=== PATIENT | male | born 1950 | race Caucasian/White ===

== ENCOUNTER 2019-09-13 12:23 | Observation (INO) | payer MEDICARE ==
--- NOTE | 2019-09-13 15:14 | NM ---
VQ SCAN: DATE: 09/13/2019 HISTORY: Dyspnea. TECHNIQUE: A ventilation perfusion scan was performed using 19.1 mCi Xenon-133 by inhalation for the ventilation stud followed by the intravenous administration of 5.9 mCi technetium-99m MAA for the perfusion scan . FINDINGS: Correlation is made with chest radiograph from the same date. There is homogeneous tracer distribution to both lungs on the ventilation perfusion exams without ple ural based, wedge-shaped, segmental or subsegmental, mismatched perfusion defects. There is mild trac er retention in the lungs bilaterally on the washout phase of the ventilation scan. IMPRESSION: Very low probability for pulmonary embolism. POS: [facility]
[2019-09-13 16:00] LABS: Troponin I 0.027 ng/mL (< 0.028)
[2019-09-13 16:27] VITALS: BMI 27.8
[2019-09-13] MEDS ORDERED: Labetalol HCl 100 MG/20 ML VIAL SLOW IVP PRN (16:53)
[2019-09-13] MEDS ORDERED: Ondansetron PF 4 MG/2 ML Vial IVP PRN (16:53)
[2019-09-13] MEDS ORDERED: Nitroglycerin 0.4 MG TAB (25 Tab Bottle) PO PRN (16:53)
[2019-09-13] MEDS ORDERED: Ondansetron ODT 4 MG TAB PO PRN (16:53)
--- NOTE | 2019-09-13 17:31 | HP ---
PRIMARY CARE PROVIDER: [facility] in [place], [place]. CHIEF COMPLAINT: Chest pain and burning in the throat. HISTORY OF PRESENT ILLNESS: This is a 68-year-old male with significant history of coronary artery disease, status post coronary artery bypass grafting x2 vessels approximately 2 years prior to this evaluation. The patient states he awoke around 4:00 a.m. on the date of admission, complaining of burning in his throat, which he states he had similar symptoms when he underwent cardiac evaluation and subsequent heart catheterization and coronary artery bypass grafting 2 years prior to this evaluation. The patient states he sat up in bed for approximately 2 hours until 6:00 a.m., then notified his family of his symptoms. EMS were notified, at which point, the patient was given sublingual nitroglycerin in addition to aspirin and transported to [facility]. The patient underwent general evaluation with negative cardiac biomarkers and no EKG changes consistent with ischemia. The patient states his symptoms of chest pain improved with the topical nitroglycerin, but experienced increasing headache. The patient denied any change to his chronic medication regimen and states he has been compliant. No history of fever, chills, travel history, exposure or family members with similar symptoms. In the emergency room, the patient did receive Lovenox, transdermal nitroglycerin, aspirin 325 mg, and Protonix 40 mg x1 dose. PAST MEDICAL HISTORY: 1. Coronary artery disease, status post coronary artery bypass grafting. 2. Multiple myeloma. 3. Gastroesophageal reflux disease. 4. Horseshoe kidney with chronic kidney disease, stage 3. 5. Hypertension. 6. Dyslipidemia. 7. Ischemic cardiomyopathy with ejection fraction of 35%. PAST SURGICAL HISTORY: 1. Status post left total knee arthroplasty. 2. Status post coronary artery bypass grafting x3 vessels. 3. Status post cardiac catheterization. CURRENT MEDICATIONS: 1. Aspirin 81 mg p.o. daily. 2. Amlodipine 10 mg p.o. daily. 3. Isosorbide dinitrate. 4. Losartan 100 mg p.o. daily. 5. Coreg 25 mg p.o. b.i.d. ALLERGIES: TO MORPHINE. FAMILY HISTORY: Positive for hypertension and coronary artery disease. SOCIAL HISTORY: Resides in [place], [place]. Retired. of the [employer]. No alcohol or illicit drug use. Uses smokeless tobacco. Functional of all activities of daily living. REVIEW OF SYSTEMS: CONSTITUTIONAL: Negative for weight loss or gain, ability to conduct usual activities. SKIN: Negative for rash, itching. EYES: Negative for double vision, pain. ENT/MOUTH: Negative for nose bleeding, neck stiffness, pain, tenderness. CARDIOVASCULAR: Negative for palpitations, dyspnea on exertion, orthopnea. RESPIRATORY: Negative for shortness of breath, wheezing, cough, hemoptysis, fever or night sweats. GASTROINTESTINAL: Negative for poor appetite, abdominal pain, heartburn, nausea, vomiting, constipation, or diarrhea. GENITOURINARY: Negative for urgency, frequency, dysuria, nocturia. MUSCULOSKELETAL: Negative for pain, swelling. NEUROLOGIC/PSYCHIATRIC: Negative for anxiety, depression. ALLERGY/IMMUNOLOGIC: Negative for skin rash, bleeding tendency. Otherwise negative except as stated per HPI. PHYSICAL EXAMINATION: VITAL SIGNS: On admission, blood pressure 170/90, pulse 45, respiratory rate 16, temperature 97.7 degrees Fahrenheit, and O2 saturation 97% on room air. GENERAL APPEARANCE: This is a 68-year-old male, alert and oriented x3, pleasant, responsive, in no acute distress. HEENT: Pupils are equal, round, and reactive to light and accommodation. Extraocular muscles are intact. No scleral icterus. No conjunctival injection. Nares patent. OP is clear. Teeth in fair repair. NECK: Supple. No cervical adenopathy. No thyromegaly. No carotid bruits. No JVD appreciated. Cervical spine with full active and passive range of motion. No meningeal signs noted. CHEST: Lungs are clear to auscultation bilaterally. CARDIOVASCULAR: S1 and S2 without noted murmur, rub, or gallop. ABDOMEN: Rounded, soft, nontender, and nondistended. Bowel sounds are positive in all 4 quadrants. There is no hepatosplenomegaly. No abdominal bruits. No rebound or guarding appreciated. EXTREMITIES: Warm and dry with fair turgor. No clubbing, cyanosis, or asymmetric edema appreciated. Pulses palpable distally at the dorsalis pedis, posterior tibial, and popliteal arteries bilaterally. Capillary refill less than 2 seconds. NEUROLOGIC: Cranial nerves II through XII are grossly intact. No focal or lateralizing signs appreciated. PERTINENT LABORATORY AND X-RAY FINDINGS: Sodium 144, potassium 4.3, chloride 111, CO2 of 21, BUN 19, creatinine 1.57, estimated GFR 44, glucose 119, and calcium 8.7. LFTs within normal limits. BNP 228, previously noted 377 on 02/28/2017. Lipase 29. CBC within normal limits. D-dimer 0.81. Ventilation perfusion study dated 09/13/2019, showed low probability for pulmonary embolus. Portable chest x-ray dated 09/13/2019, showed mild cardiomegaly. EKG dated 09/13/2019, by my interpretation shows sinus bradycardia with heart rates in the 40s. Attenuated R-waves noted in the precordial leads. Normal axis. T-wave flattening in leads V5 and V6. ASSESSMENT AND PLAN: 1. Chest pain. The patient will be observed on the telemetry unit. We will continue serial cardiac biomarkers per protocol. Check 2D transthoracic echocardiogram in the a.m. Proceed with Cardiolite stress testing. Continue aspirin 325 mg daily. Check fasting lipid profile in the a.m. 2. Coronary artery disease, chronic and stable. See #1 above. Continue aspirin 325 mg daily. 3. Hypertension. Confirm home blood pressure regimen and resume when available. P.r.n. metoprolol IV. 4. Chronic kidney disease, stage 3. Avoid nephrotoxic agents and limit contrast exposure. Repeat creatinine in the a.m. 5. Gastroesophageal reflux disease. Continue Pepcid 20 mg p.o. b.i.d. 6. Prophylaxis. SCDs while in bed. Pepcid 20 mg p.o. b.i.d. 7. Code status is full. Surrogate medical decision maker is the patient's spouse. Job ID: [id number]
[2019-09-13 17:53] LABS: Troponin I 0.016 ng/mL (< 0.028)
[2019-09-13] MEDS ORDERED: Sodium Chloride 0.65% Nasal 44 ML BOT EA NARE PRN (19:53)
[2019-09-13] MEDS ORDERED: hydrALAZINE 20 MG/ML VIAL SLOW IVP PRN (19:55)
[2019-09-13] MEDS: Acetaminophen 500 MG TAB PO PRN (19:55)
[2019-09-13] MEDS ORDERED: Sodium Chloride 0.65% Nasal 44 ML BOT EA NARE SCH (20:00)
[2019-09-13] MEDS ORDERED: Loratadine 10 MG TAB PO SCH (20:00)
[2019-09-13 20:29] LABS: Troponin I 0.011 ng/mL (< 0.028)
[2019-09-13] MEDS ORDERED: Famotidine 20 MG TAB PO SCH (21:00)
[2019-09-14] MEDS: Acetaminophen 500 MG TAB PO PRN (04:07)
[2019-09-14] MEDS ORDERED: Loratadine 10 MG TAB PO SCH (09:00)
[2019-09-14] MEDS: Carvedilol 25 MG TAB PO SCH (09:07)
[2019-09-14] MEDS: Amlodipine 10 MG TAB PO SCH (09:07)
[2019-09-14] MEDS: Losartan 25 MG TAB PO SCH (09:07)
[2019-09-14] MEDS: Aspirin 325 mg Enteric Coated Tablet PO SCH (09:07)
[2019-09-14 13:10] LABS: Hemoglobin 14.4 g/dL (14.0-18.0); Mean Corpuscular Hemoglobin 31.9 pg (27.0-31.0); Mean Corpuscular Volume 93.9 fL (78.0-98.0); Mean Platelet Volume 8.6 fL (7.4-10.4); Platelet Count 183 thou/uL (130-400); RBC Distribution Width 12.6 % (11.5-14.5); White Blood Cell (WBC) Count 4.9 thou/uL (4.8-10.8)
[2019-09-14 13:22] LABS: Anion Gap 13 mmol/L (10-20); BUN (Urea Nitrogen) 19 mg/dL (8.4-25.7); Calc. Creatinine Clearance 48 mL/min (70-130); Calcium 9.6 mg/dL (7.8-10.44); Carbon Dioxide 22 mmol/L (23-31); Cardiac Risk 5.3 (Less than 4.5); Chloride 108 mmol/L (98-107); Cholesterol 176 mg/dl (< 200 Desired); Estimated GFR-MDRD 39; Glucose 110 mg/dL (80-115); HDL Cholesterol 33 mg/dL (>60 Neg Risk); LDL Cholesterol, Calculated 110 mg/dL; Potassium 4.2 mmol/L (3.5-5.1); Sodium 139 mmol/L (136-145); Triglycerides 167 mg/dL (Less than 150)
[2019-09-14 13:45] LABS: Band 1 % (5-11); Eosinophils 1 % (0-10); Lymphocytes 18 % (21-51); MDiff Complete? YES; Monocytes 13 % (0-10); Neutrophil 65 % (42-75); Platelet Morphology Comment Appears Adequate; RBC Morphology Normal; Reactive Lymphocytes 2 % (0-10)
--- NOTE | 2019-09-14 15:31 | PDOC.HOSPP ---
- Subjective Encounter Date: 09/14/19 Encounter Time: 14:00 Subjective: Patient seen and examined for CP. No new episodes of CP. No edema or SOB. No new complaints. No overnight events - Objective Vital Signs & Weight: Vital Signs (12 hours) Temp Pulse Resp BP Pulse Ox 09/14/19 11:35 98 F 58 L 14 137/78 96 09/14/19 09:09 97 09/14/19 09:07 60 09/14/19 07:32 97.9 F 60 16 138/72 97 09/14/19 04:07 98.3 F 53 L 16 168/80 H 96 Weight Weight 182 lb 11.2 oz I&O: 09/13/19 09/14/19 09/15/19 06:59 06:59 06:59 Intake Total 1080 Output Total 600 Balance 480 Result Diagrams: 09/14/19 12:52 09/14/19 12:52 Radiology Reviewed by me: Yes (CXR - neg) EKG Reviewed by me: Yes (Tele SR) Hospitalist ROS - Review of Systems Respiratory: denies: cough, dry, shortness of breath, hemoptysis, SOB with excertion, pleuritic pain, sputum, wheezing, other Cardiovascular: denies: chest pain, palpitations, orthopnea, paroxysmal noc. dyspnea, edema, light headedness, other - Medication Medications: Active Medications Generic Name Dose Route Start Last Admin Trade Name Freq PRN Reason Stop Dose Admin Acetaminophen 1,000 mg 09/13/19 16:53 09/14/19 04:07 Tylenol PO 1,000 mg Q6H PRN Administration Mild Pain (1-3) Amlodipine Besylate 10 mg 09/14/19 09:00 09/14/19 09:07 Norvasc PO 10 mg DAILY DUSTIN Administration Aspirin 325 mg 09/14/19 09:00 09/14/19 09:07 Ecotrin PO 325 mg DAILY DUSTIN Administration Carvedilol 25 mg 09/14/19 09:00 09/14/19 09:07 Coreg PO 25 mg DAILY DUSTIN Administration Loratadine 10 mg 09/14/19 09:00 09/14/19 09:07 Claritin PO 10 mg DAILY DUSTIN Administration Losartan Potassium 100 mg 09/14/19 09:00 09/14/19 09:07 Cozaar PO 100 mg DAILY DUSTIN Administration Pantoprazole Sodium 40 mg 09/14/19 09:00 09/14/19 09:03 Protonix PO Not Given DAILY DUSTIN - Exam General Appearance: NAD Heart: RRR, no gallops, no rubs, normal peripheral pulses Heart - other findings: healed midline scar Respiratory: no wheezes, no rales, no ronchi, normal chest expansion Gastrointestinal: non-tender, non-distended, normal bowel sounds, no guarding, no rigidity Extremities: no cyanosis Neurological: no new deficit Psychiatric: normal affect, A&O x 3 Hosp A/P - Plan DVT proph w/SCDs CP CAD s/p CABG CKD 3 HTN Multiple myeloma GERD HLD Chronic systolic HF EF 35% PLAN: Cont ASA Cont Coreg Cont Losartan Await Stress test Cont PPI Pt not on Statins at home Consult Cardiology
--- NOTE | 2019-09-14 16:28 | CON ---
DATE OF CONSULTATION: 09/14/2019 REASON FOR CONSULTATION: Chest pain. PRIMARY HISTOLOGY ASSISTANT: At the [facility] [place]. HISTORY OF PRESENT ILLNESS: Mr. Castillo is a very pleasant 68-year-old white gentleman, who comes to the hospital for chest pain. He states that this is really not a chest pain, what he had was burning on his throat. He became concerned because this is the exact same symptoms that he was having about 2 or 3 years ago that caused him to undergo a heart catheterization and eventually coronary artery bypass grafting x2 at the [facility] in [place]. He states that he has not had this burning on the throat since the bypass, so he is concerned this is his angina. He states that he had 2 chickens fighting as he has several chickens at home. They were fighting and he ran into them to separate them. He felt burning when he was running toward them, this was Wednesday, today is . He states that ever since then he has noticed a little burning on his throat. Currently, he denies any symptoms. No tightness, pressure. No shortness of breath. No passing out or almost passing out. PAST MEDICAL HISTORY: 1. Coronary artery disease, status post CABG x2 in 2017. 2. Multiple myeloma. 3. GERD. 4. Horseshoe kidney. 5. Chronic kidney disease stage 3. Baseline creatinine stays between 1.5 to 1.7. 6. Hypertension. 7. Hyperlipidemia. 8. Ischemic cardiomyopathy with a reduced EF at about 35% in the past. PAST SURGICAL HISTORY: 1. Left total knee arthroplasty. 2. CABG as above. 3. Cardiac catheterization. The only time he has had it is before his CABG. OUTPATIENT MEDICATIONS: 1. Aspirin 81 a day. 2. Amlodipine 10 mg a day. 3. Omeprazole 20 mg a day. 4. Carvedilol 25 mg a day. 5. Acyclovir. 6. Losartan 100 mg a day. On his list, there is also isosorbide dinitrate, but that is not on his home list. ALLERGIES: MORPHINE. FAMILY HISTORY: Positive for early coronary artery disease. SOCIAL HISTORY: Lives in [place]. He is a retired . No alcohol or drugs. Smokeless tobacco. He takes care of many chickens at home. He used to be in construction. REVIEW OF SYSTEMS: A 12-point review of systems was done and was all negative unless stated in the history of present illness. PHYSICAL EXAMINATION: VITAL SIGNS: Temperature 98.0, pulse 58, respiratory rate 14, saturations 96% on room air, blood pressure 137/78. GENERAL: Awake, alert, and oriented x3, in no distress. HEENT: Normocephalic and atraumatic. NECK: Supple. LUNGS: Clear. CARDIOVASCULAR: S1 and S2. No S3 or S4. No murmurs. ABDOMEN: Soft. Positive bowel sounds. EXTREMITIES: No edema. SKIN: Warm and dry. LABORATORY DATA: Laboratory work was reviewed. CBC with a white count of 4, hemoglobin of 14, hematocrit 42, and platelet count of 183. Chemistry was unremarkable except for chloride of 108 and a carbon dioxide of 22. Normal gap. Creatinine was 1.57 on admission, up to 1.73 this morning. Troponin was completely negative x3. Triglycerides of 167, cholesterol of 176, LDL of 110, HDL of 33. IMAGING STUDIES: V/Q scan was low probability for pulmonary embolism. Chest x-ray showed mild cardiomegaly, but no signs of CHF or pneumonia. ASSESSMENT AND PLAN: 1. Chest pain. 2. Coronary artery disease. 3. Status post coronary artery bypass graft. 4. History of ischemic cardiomyopathy. PLAN: 1. Echocardiogram. 2. His kidney function is borderline to do heart catheterization. We will plan on hydrating overnight. We will get further risk stratification with a stress test. If this is normal, I will start him on antianginal and follow up with him in 2 to 4 weeks. If the angina continues despite antianginals, we will plan on doing a heart catheterization at that time with prehydration. If his stress is abnormal, we will have hydrated him overnight anyway in preparation for possible heart catheterization tomorrow afternoon. 3. Otherwise, we will add a statin drug as he is not on any statins and his LDL goal is less than 70, is currently at 110. Thank you for letting us to participate in the care of your patient. We will follow. Job ID: [id number]
[2019-09-14] MEDS ORDERED: Loratadine 10 MG TAB PO PRN (17:12)
[2019-09-14] MEDS: Fluticasone Propionate Nasal Spray 16 gm Bottle NASAL SCH (17:50)
[2019-09-14] MEDS ORDERED: Atorvastatin Calcium 20 MG TAB PO SCH (21:00)
[2019-09-15] MEDS: Carvedilol 25 MG TAB PO SCH ×2 (07:42→11:09)
[2019-09-15] MEDS: Fluticasone Propionate Nasal Spray 16 gm Bottle NASAL SCH (07:53)
[2019-09-15] MEDS: Losartan 25 MG TAB PO SCH (07:53)
[2019-09-15] MEDS: Aspirin 325 mg Enteric Coated Tablet PO SCH (07:54)
[2019-09-15] MEDS: Amlodipine 10 MG TAB PO SCH (07:54)
[2019-09-15] MEDS: Acetaminophen 500 MG TAB PO PRN (11:09)
[2019-09-15 11:11] VITALS: BP 176/83
--- NOTE | 2019-09-15 11:45 | NM ---
CARDIAC SPECT: CLINICAL HISTORY: 68-year-old male with chest pain, coronary artery disease, status post CABG, hypertension, dyslipidem ia. TECHNIQUE: A myocardial perfusion scan was performed using the single isotope one day protocol with technetium-9 9m sestamibi. 10 mCi were injected intravenously for the rest exam followed by 30 mCi for the stress exam. Pharmacologic stress with Lexiscan was monitored and interpreted by Dr. Miranda. FINDINGS: Homogeneous tracer distribution is seen in the myocardial segments on stress and rest images without fixed or reversible defects. GATED SPECT LVEF: 43%. WALL MOTION EXAM: Mild global hypokinesis. IMPRESSION: No evidence of reversible ischemia. POS: [facility]
[2019-09-15 11:50] VITALS: TEMP 97.2
[2019-09-15] MEDS ORDERED: Regadenoson 0.4 MG/5 ML SYRINGE ONE (12:00)
--- NOTE | 2019-09-15 13:03 | STRESS ---
Acquisition Time: 2019-09-15 09:28:07 Total Exercise Time: 00:04:14 Test Indications: CHEST PAIN Medications: Protocol: CARINE Max HR: 121 BPM 79% of Pred: 152 BPM Max BP: 208/078 mmHG Max Work Load: 7.0 METS THE PATIENT WAS UNABLE TO COMPLETE TREADMILL TEST. HE WAS INJECTED WITH LEXISCAN. HE DID NOT DEVELOP CHEST PAIN. AWAIT NUCLEAR IMAGES FOR DEFINITIVE DIAGNOSIS. Confirmed by BRANDY DAVID ([id number]), food editor HUMZA PEREZ ([id number]) on 09/15/2019 1:03:02 PM Referred By: MD Martine GARZA Confirmed By:BRANDY DAVID
--- NOTE | 2019-09-15 13:22 | PDOC.CPN ---
- Subjective Date: 09/15/19 Time: 13:19 Interval history: He is doing well. No chets p[aion. stress test showed no reversible ischemia. EF reduced at 43% correlates with echo at 40-45%. - Review of Systems General: denies: fever/chills, weight/appetite/sleep changes, night sweats, fatigue Respiratory: denies: cough, congestion, shortness of breath, exercise intolerance Cardiovascular: denies: chest pain, palpitation, edema, paroxysmal nocturnal dyspnea, orthopnea Gastrointestinal: denies: nausea, vomiting, diarrhea, constipation, abd pain, GI bleeding Musculoskeletal: denies: pain, tenderness, stiffness, swelling, arthritis/ arthralgias Neurological: denies: numbness, syncope, seizure, weakness - Objective Allergies/Adverse Reactions: Allergies Allergy/AdvReac Type Severity Reaction Status Date / Time morphine Allergy Verified 09/13/19 16:25 Visit Medications: Current Medications Acetaminophen (Tylenol) 1,000 mg PO Q6H PRN PRN Reason: Mild Pain (1-3) Last Admin: 09/15/19 11:09 Dose: 1,000 mg Amlodipine Besylate (Norvasc) 10 mg PO DAILY [facility] Last Admin: 09/15/19 07:54 Dose: 10 mg Aspirin (Ecotrin) 325 mg PO DAILY [facility] Last Admin: 09/15/19 07:54 Dose: 325 mg Atorvastatin Calcium (Lipitor) 20 mg PO HS [facility] Last Admin: 09/14/19 20:06 Dose: 20 mg Carvedilol (Coreg) 25 mg PO DAILY [facility] Last Admin: 09/15/19 11:09 Dose: 25 mg Fluticasone Propionate (Flonase Nasal Luther) 0 gm NASAL Q24HR [facility] Last Admin: 09/15/19 07:53 Dose: 1 spr Hydralazine HCl (Apresoline) 10 mg SLOW IVP Q4H PRN PRN Reason: SBP Greater Than 180 Last Admin: 09/15/19 00:10 Dose: 10 mg Isosorbide Mononitrate (Imdur Er) 30 mg PO DAILY [facility] Labetalol HCl (Normodyne) 20 mg SLOW IVP Q4H PRN PRN Reason: SBP > 180 and HR >/= 70 Loratadine (Claritin) 10 mg PO DAILYPRN PRN PRN Reason: Sinus Symptoms Last Admin: 09/15/19 07:54 Dose: 10 mg Losartan Potassium (Cozaar) 100 mg PO DAILY [facility] Last Admin: 09/15/19 07:53 Dose: 100 mg Nitroglycerin (Nitrostat) 0.4 mg PO Q5MIN PRN PRN Reason: Chest Pain Ondansetron HCl (Zofran Odt) 4 mg PO Q6H PRN PRN Reason: Nausea/Vomiting Ondansetron HCl (Zofran) 4 mg IVP Q6H PRN PRN Reason: Nausea/Vomiting Pantoprazole Sodium (Protonix) 40 mg PO DAILY [facility] Last Admin: 09/15/19 07:42 Dose: Not Given Sodium Chloride ([place] Nasal Luther 0.65%) 0 ml EA NARE Q4H PRN PRN Reason: Nasal Congestion Vital Signs & Weight: Vital Signs Temp Pulse Resp BP BP Pulse Ox 09/15/19 11:29 97.2 F L 09/15/19 11:10 57 L 16 176/83 H 09/15/19 07:54 62 09/15/19 07:09 98.0 F 63 16 181/82 H 96 09/15/19 05:25 97.5 F L 62 17 162/67 H 96 Weight 182 lb 11.2 oz - Physical Exam General: alert & oriented x3 HEENT: mucus membranes moist Neck: supple neck Cardiac: regular rate and rhythm Lungs: clear to auscultation Neuro: grossly intact Abdomen: active bowel sounds Extremities: no edema Skin: clear Musculoskeletal: no pain - Labs Result Diagrams: 09/14/19 12:52 09/14/19 12:52 Troponin/CKMB Troponin I 0.011 ng/mL (< 0.028) 09/13/19 19:52 - Telemetry Sinus rhythms and dysrhythmias: sinus rhythm - Assessment/Plan Assessment/Plan: 1. CAD, stable 2. S/P CABG 3. Ischemic CM EF at 40-45% 4. HTN PLAN: - May discharge home. - Will add Imdur for both BP and angina. - Follow up in 1-2 months with myself or [facility] call [facility] (if available due to coronavirus)
--- NOTE | 2019-09-15 16:38 | DIS ---
DATE OF ADMISSION: 09/13/2019 DATE OF DISCHARGE: 09/15/2019 DISCHARGE DISPOSITION: Home. FOLLOWUP: 1. Follow up with primary care physician at [facility]. 2. Follow up with Cardiology, Dr. Rodriguez, as scheduled. ALLERGIES: THE PATIENT IS ALLERGIC TO MORPHINE. DISCHARGE MEDICATIONS: 1. Isosorbide mononitrate 30 mg daily. 2. Sublingual nitroglycerin as needed. The patient will continue all other home medications. The patient was seen on the day of discharge. Denies any new complaints. No chest pain, shortness of breath, or palpitations reported. INPATIENT FILM NUMBERER: Cardiology, Dr. Rodriguez. BRIEF HOSPITAL COURSE: The patient is a 68-year-old male with coronary artery disease, status post CABG, presented to the emergency room with chest discomfort. Please refer to the history and physical for further details. The patient was admitted to the hospital with a diagnosis of chest discomfort, rule out acute coronary syndrome. His maximum troponin was 0.027. He was evaluated in the telemetry unit. His echocardiogram showed left ventricular ejection fraction of 40% to 45% with inferior hypokinesis, grade 1 of 3 diastolic dysfunction, mild tricuspid regurgitation with a small pericardial effusion without tamponade. He underwent a Cardiolite stress test that was negative for reversible ischemia. Ejection fraction on the stress test was 43% with mild global hypokinesis. The patient has been cleared by Cardiology for discharge. He was started on 30 mg of Imdur on a daily basis. FINAL DIAGNOSES: 1. Chest discomfort, acute coronary syndrome ruled out. 2. Coronary artery disease, status post coronary artery bypass grafting. 3. Chronic kidney disease, stage 3. 4. Hypertension. 5. History of multiple myeloma. 6. Gastroesophageal reflux disease. 7. Hyperlipidemia. 8. Chronic systolic heart failure, ejection fraction 35% to 40% range. The patient understands the above plan of care. Job ID: [id number]
[2019-09-16] MEDS ORDERED: Isosorbide Mononitrate (ER) 30 MG TAB PO SCH (09:00)
== END 2019-09-15 14:08 | disposition home or self-care (01) ==
LOC: ERS 12:23 → 2SW 14:07
PROVIDERS: ADMIT Family Medicine; ATTEND Family Medicine
DX: R07.89 Other chest pain (principal); I25.10 Atherosclerotic heart disease of native coronary artery without angina pectoris; I13.0 Hypertensive heart and chronic kidney disease with heart failure and stage 1 through stage 4 chronic kidney disease, or unspecified chronic kidney disease; I50.22 Chronic systolic (congestive) heart failure; N18.3 Chronic kidney disease, stage 3 (moderate); C90.00 Multiple myeloma not having achieved remission; F17.290 Nicotine dependence, other tobacco product, uncomplicated; E78.5 Hyperlipidemia, unspecified; K21.9 Gastro-esophageal reflux disease without esophagitis; Z79.82 Long term (current) use of aspirin; Z79.899 Other long term (current) drug therapy; Z88.5 Allergy status to narcotic agent; Z95.1 Presence of aortocoronary bypass graft
CPT/HCPCS: 78452; 78582; 80048; 80061; 84484; 85007; 85027; 93005; 93017; 93306; 94760; 99285; A9500; A9540; A9558; 36415; 96374; G0378; J0360; J2785